=== PATIENT | male | born 1945 | race Caucasian/White ===

== ENCOUNTER 2019-01-01 08:30 | Day surgery (SDC) | payer OTHER ==
[~2019-01-01] VITALS: Ht 165.1 cm; Wt 72.6 kg
[2019-01-01] MEDS ORDERED: MIDAZOLAM 2 MG/2 ML VIAL ONE ×2 (10:58)
[2019-01-01] MEDS ORDERED: fentaNYL 0.05 MG/ML VIAL ONE (10:58)
[2019-01-01] MEDS ORDERED: LIDOCAINE 2% 100 MG/5 ML UJET TP ONE (10:59)
[2019-01-01] MEDS ORDERED: MIDAZOLAM 2 MG/2 ML VIAL IVP ONE (13:05)
[2019-01-01] MEDS ORDERED: fentaNYL 0.05 MG/ML VIAL IVP ONE (13:05)
== END 2019-01-01 12:05 | disposition home or self-care (01) ==
LOC: MDS 08:30 → MMU 08:31 → MDS 12:05
PROVIDERS: ATTEND Internal Medicine Gastroenterology
DX: Z12.11 Encounter for screening for malignant neoplasm of colon (principal); D12.3 Benign neoplasm of transverse colon; D12.0 Benign neoplasm of cecum; R13.10 Dysphagia, unspecified; K29.70 Gastritis, unspecified, without bleeding; Z87.891 Personal history of nicotine dependence; J45.909 Unspecified asthma, uncomplicated
CPT/HCPCS: 36415; 43239; 45385; 86677; J2250; J3010